=== PATIENT | female | born 1985 | race Caucasian/White ===

== ENCOUNTER 2017-08-17 06:07 | Day surgery (SDC) | payer BC ==
[2017-08-16 09:53] LABS: BASOPHILS 0.1 % (0-2); EOSINOPHILS 3.3 % (0-7); HEMATOCRIT 40.4 % (36.0-48.0); HEMOGLOBIN 13.4 g/dL (12-16); IMMATURE GRANULOCYTES 0.3 % (0-5); LYMPHOCYTES 30.9 % (15-50); MCH 30.9 pg (26.0-34.0); MCHC 33.2 g/dL (31.0-37.0); MCV 93.1 fL (80.0-100.0); MEAN PLATELET VOLUME 9.9 fL (7.4-10.4); MONOCYTES 6.3 % (2-11); NEUTROPHILS 59.1 % (40-80); PLATELET COUNT 246 10x3/uL (130-400); RBC 4.34 10x6/uL (4.00-5.40); RDW 12.4 % (11.5-14.5)
[2017-08-16 10:12] LABS: CALC OSMOLALITY 278 mosm/kg (275-300); CALCIUM 9.1 mg/dL (8.5-10.1); CARBON DIOXIDE 28.8 mmol/L (21.0-32.0); CHLORIDE - SERUM 106 mmol/L (98-107); CREATININE - SERUM 0.9 mg/dL (0.6-1.3); GLUCOSE 79 mg/dL (74-106); SODIUM 141 mmol/L (136-145); UREA NITROGEN 11 mg/dL (7-18); eGFR NON AFRICAN AMERICAN 78 mL/min (90-120)
[~2017-08-17] VITALS: Ht 154.9 cm; Wt 65.9 kg
[2017-08-17 07:45] VITALS: BP 115/75; Ht 154.9 cm; Wt 65.9 kg
[2017-08-17] MEDS ORDERED: HYDROCODONE-APA1 TAB PO ×2 (09:48)
--- NOTE | 2017-08-17 11:20 | NUR ---
1115 SERVED FULL LIQUID DIET. Tammy MCKEON R.N.
--- NOTE | 2017-08-17 11:51 | NUR ---
1110 SERVED FULL LIQUID DIET. Tammy MCKEON R.N.
--- NOTE | 2017-08-17 12:15 | NUR ---
PT U P TO BR TO VOID.
--- NOTE | 2017-08-17 12:30 | NUR ---
IV D/C'D CATH INTACT.
--- NOTE | 2017-08-17 12:45 | NUR ---
PT UP TO BR, TO VOID.
--- NOTE | 2017-08-17 13:00 | NUR ---
D/C INSTRUCTIONS EXPLAINED TO PT. VOICED UNDERSTANDING. COPIES OF ALL GIVEN. IBUPROFEN 800 MG PO #20 CALLED TO IN DODD LUI MCKEON RN. PT D/C'D HOME VIA W/C TO PRIVATE CAR.
--- NOTE | 2017-08-17 15:39 | OP ---
PATIENT NAME: DEYA CORTEZ MEDICAL RECORD: [id number] :87 LOCATION:D.OPS ADMISSION DATE: SURGEON: EVANGELISTA CALDERA MD DATE OF OPERATION: 08/17/2017 PREOPERATIVE DIAGNOSIS: Umbilical incisional hernia. POSTOPERATIVE DIAGNOSIS: Umbilical incisional hernia. PROCEDURE: Umbilical hernia repair with 6.3 cm Proceed mesh. SURGEON: Evangelista Caldera MD REPORT OF PROCEDURE: The patient's abdomen was prepped and draped in sterile fashion. A cutdown was made on the inferior aspect of the umbilicus. Electrocautery was used to dissect through the subcutaneous tissues. We were able to elevate the patient's umbilicus and immediately encounter the large hernia sac. This hernia sac was dissected free and taken down at the fascial edges. Hernia defect was about 3 to 3.5 cm in greatest diameter. There was another smaller defect just inferior to this. The fascia was cleared off on all sides and a 6.4 cm Proceed mesh was placed in an underlay fashion. This was sutured down on all 4 sides using interrupted 0 Prolene. The fascia was then closed transversely with a running 0 Vicryl. At this point, the wound was irrigated out with normal saline. The umbilicus was tacked down with an interrupted 3-0 Vicryl and the subcutaneous tissues were reapproximated with interrupted 3-0 Vicryl and the skin incisions was infused with 10 mL of 0.25% Marcaine with epinephrine and then closed with running subcutaneous 5-0 Monocryl. A dressing was then applied to the area. COMPLICATIONS: None. CONDITION: Stable. ANESTHESIA: General endotracheal and local. BLOOD LOSS: Minimal. TRANSINT:[id number] Voice Confirmation ID: [id number] DOCUMENT ID: [id number] EVANGELISTA CALDERA MD at 1539 CC: SOLE SHARMA MD [id number] DICTATION DATE: 08/17/17 0958 [employer]ATION ELECTRICAL TECHNICIAN: 08/17/17 1114 [facility] 08/17/[address] [address]
== END 2017-08-17 13:00 | disposition home or self-care (01) ==
LOC: D.OPS 06:07 → D.PAN 08:15 → D.OPS 08:15 → D.PAN 08:30 → D.OPS 13:00
PROVIDERS: Surgery
DX: K42.9 Umbilical hernia without obstruction or gangrene (principal); Z01.812 Encounter for preprocedural laboratory examination